=== PATIENT | female | born 1960 | race African-American/Black ===

== ENCOUNTER 2016-06-06 22:34 | Emergency (ER) | payer BC ==
[~2016-06-06 22:34] MED LIST: AMLO5TAB2 PO; HYDR30CR61 TP; LISI1TAB5 PO; METF500T4 PO; NAPR500T PO; PANT40TA3 PO; POLY17PO5 PO; PRED20TA PO; TOPI50TA4 PO; TRAM50TA PO; VENTOLIN HFA18 GM INH; ZAFI20TA12 PO
[2016-06-07] MEDS ORDERED: HYDROMORPHONE 2 MG/ML VIAL. IM ONE (00:30)
[2016-06-07] MEDS ORDERED: HYDR-2666 PO (00:50)
--- NOTE | 2016-06-07 00:50 | PHYS DOC ---
Past Medical History Past Medical History: Arthritis, Asthma, Hypertension Additional Past Medical Histor: PRE DIABETIC, DIVERTICULITIS Past Surgical History: Hysterectomy, Other Additional Past Surgical Histo: R. ANKLE Alcohol Use: Occasionally Drug Use: None Adult General Chief Complaint Chief Complaint: LOWER EXT PAIN HPI HPI 55-year-old female presenting to the emergency department today with right leg pain for more than a year. She describes the pain as a throbbing sensation that is moderate nonradiating intermittent and worse with walking. She denies any numbness or tingling in her foot. Her father has a history of a lung clot in the lung. She does not have any history of blood clotting disorder. She has never had a blood clot. She denies any swelling or redness of the leg. Review of systems is negative for chest pain shortness of breath fevers chills. She denies recent immobilization, recent plane ride, hemoptysis, or active malignancy. All other review of systems is negative unless otherwise noted in history of present illness. Review of Systems Review of Systems SEE ABOVE. Current Medications Current Medications Current Medications Medications (Trade) Dose Ordered Sig/Praveen Start Time Stop Time Status Last Admin Dose Admin Hydromorphone HCl (Dilaudid) 0.5 mg 1X ONCE 06/07/16 00:30 06/07/16 00:31 DC 06/07/16 00:49 0.5 MG Allergies Allergies Allergies Coded Allergies Type Severity Reaction Last Updated Verified Latex, Natural Rubber Allergy Mild RASH 01/25/15 Yes Physical Exam Physical Exam Constitutional: Well developed, well nourished, no acute distress, non-toxic appearance. HENT: Normocephalic, atraumatic, bilateral external ears normal, oropharynx moist, no oral exudates, nose normal. [] Eyes: PERRLA, EOMI, conjunctiva normal, no discharge. Neck: Normal range of motion, no tenderness, supple, no stridor. [] Cardiovascular:Heart rate regular rhythm, no murmur Lungs & Thorax: Bilateral breath sounds clear to auscultation Abdomen: Bowel sounds normal, soft, no tenderness, no masses, no pulsatile masses. [] Skin: Warm, dry, no erythema, no rash. Back: No tenderness, no CVA tenderness. [] Extremities: The patient's right lower extremity is warm and well perfused with palpable pulse. Normal motor and sensory function distally. Patient has mild tenderness with passive range of motion of the knee joint. No effusion on clinical exam. No ecchymosis laceration or abrasion to the skin. Not warm to touch. Nontender venous system. Not swollen. No erythema. No clinical evidence of DVT present. Neurologic: Alert and oriented X 3, normal motor function, normal sensory function, no focal deficits noted. [] Psychologic: Affect normal, judgement normal, mood normal. Current Patient Data Vital Signs Vital Signs Date Time Temp Pulse Resp B/P Pulse Ox O2 Delivery O2 Flow Rate FiO2 06/07/16 00:49 20 99 Room Air 06/06/16 22:41 98.1 87 120/88 98.1 Lab Values Laboratory Tests Test 06/07/16 00:25 D-Dimer (Jannette) 0.64ug/mlFEU (0.00-0.50) H EKG EKG [] Radiology/Procedures Radiology/Procedures [] Course & Med Decision Making Course & Med Decision Making Pertinent Labs and Imaging studies reviewed. (See chart for details) [] 55-year-old female presenting with chronic leg pain. Initially I had ordered an x-ray which apparently the patient and normal x-ray about a week ago. She was low risk for blood clotting. Dimer sent. Dimer was elevated. US neg. Not likely to be blood clot. Pain controlled in the emergency department. Patient was subsequent discharged home to follow up with PCP over the next 2-3 days. Dragon Disclaimer Dragon Disclaimer This electronic medical record was generated, in whole or in part, using a voice recognition dictation system. Departure Departure Impression: Primary Impression: Right knee pain Disposition: HOME, SELF-CARE Condition: STABLE Referrals: AMAYA HORTA MD (PCP) Patient Instructions: Knee Pain Additional Instructions: Thank you for allowing us to participate in your care today. Followup with your primary care physician in 3 days if your symptoms do not improve. If you do not have a primary care provider you can ask for a list of our primary care providers. Return to the emergency department you have any new or concerning findings. This should be evaluated by the primary care physician and any necessary consulting services for continued management within a few days after discharge. Return to emergency room if you have any new or concerning symptoms including but not limited to fever, chills, nausea, vomiting, intractable pain, any new rashes, chest pain, shortness of air, uncontrolled bleeding, difficulty breathing, and/or vision loss. You may have been prescribed medication that can change in your level of thinking and ability to operate machinery. These medications include hydrocodone and Ativan. Also, Benadryl has been known to do this as well. Be sure to check with your pharmacist and ask if the medications you've prescribed can affect your level of consciousness. I recommend not operating heavy machinery or driving while on medication such as these. Scripts Hydrocodone Bit/Acetaminophen (Hydrocodone-Apap 5-325 )1 Each Tablet1 Tab PO PRN Q6HRS PRN PAIN #15 TAB Be careful as this medication may cause you to be drowsy or tired. Do not drive on this medication. Prov:HIRA CESPEDES MD 06/07/16 HIRA CESPEDES MD Jun 07, 2016 00:50
--- NOTE | 2016-06-07 02:31 | RAD ---
Examination: Ultrasound right lower extremity venous duplex. History: History of right lower extremity pain. COMPARISON None available. TECHNIQUE Grayscale, color Doppler 2D, spectral waveform analysis of the right lower extremity venous system were performed. Findings: The visualized common femoral vein, superficial femoral vein, popliteal vein demonstrate normal compression augmentation of flow. The visualized calf veins are patent. IMPRESSION No evidence of deep venous thrombosis identified in the right lower extremity venous system. Electronically signed by: Ilya Rooney (Jun 07, 2016 02:29:28)
[2016-06-07 02:45] VITALS: BP 129/73
== END 2016-06-07 03:00 | disposition home or self-care (01) ==
LOC: ER 22:34
DX: M25.561 Pain in right knee (principal); M19.90 Unspecified osteoarthritis, unspecified site; J45.909 Unspecified asthma, uncomplicated; I10 Essential (primary) hypertension; Z90.710 Acquired absence of both cervix and uterus; Z91.040 Latex allergy status
CPT/HCPCS: 36415; 85379; 93971; 96372; 99285; J1170

== ENCOUNTER 2017-06-21 06:25 | Emergency (ER) | payer BC ==
[2017-06-21] MEDS ORDERED: CONTRAST GIVEN MC (07:00)
[2017-06-21] MEDS ORDERED: 0.9 % SODIUM CHLORIDE 10 ML DISP.SYRIN. IV (07:00)
[2017-06-21 07:20] LABS: ADD MAN DIFF? NO
[2017-06-21 07:24] LABS: BASO % 1 % (0-3); EOS # 0.1 x10^3/uL (0.0-0.7); EOS % 2 % (0-3); HEMATOCRIT 37.6 % (36.0-47.0); HEMOGLOBIN 12.1 g/dL (12.0-15.5); LYMPH # 2.6 x10^3/uL (1.0-4.8); LYMPH % 30 % (24-48); MEAN CORPUSCULAR HEMOGLOBIN 27 pg (25-35); MEAN CORPUSCULAR HGB CONC 32 g/dL (31-37); MEAN CORPUSCULAR VOLUME 85 fL (79-100); MONO # 0.6 x10^3/uL (0.0-1.1); MONO % 7 % (0-9); NEUT # 5.3 x10^3uL (1.8-7.7); NEUT % 61 % (31-73); PLATELET COUNT 383 x10^3/uL (140-400); RED BLOOD COUNT 4.45 x10^6/uL (3.50-5.40); RED CELL DISTRIBUTION WIDTH 14.8 % (11.5-14.5); WHITE BLOOD COUNT 8.8 x10^3/uL (4.0-11.0)
[2017-06-21 07:25] LABS: BILIRUBIN,URINE NEGATIVE (NEG); CLARITY,URINE CLEAR; COLOR,URINE YELLOW; GLUCOSE,URINE NEGATIVE (NEG); NITRITE,URINE NEGATIVE (NEG); PROTEIN,URINE NEGATIVE (NEG-TRACE); UROBILINOGEN,URINE 0.2 mg/dL (0.2 mg/dL)
[2017-06-21] MEDS: IV NORMAL SALINE 1000ML BAG 1,000 ML IV (07:29)
[2017-06-21] MEDS: ONDANSETRON PF 4 MG/2 ML VIAL. IV (07:30)
[2017-06-21] MEDS: MORPHINE SULFATE 4 MG/ML DISP.SYRIN. IV/SQ (07:30)
[2017-06-21 07:33] LABS: ANION GAP 11 (6-14); BLOOD UREA NITROGEN 15 mg/dL (7-20); CALCIUM 8.9 mg/dL (8.5-10.1); CARBON DIOXIDE 24 mmol/L (21-32); CHLORIDE 107 mmol/L (98-107); CREATININE 0.9 mg/dL (0.6-1.0); GFR 78.1; GLUCOSE 137 mg/dL (70-99); POTASSIUM 3.9 mmol/L (3.5-5.1); SODIUM 142 mmol/L (136-145)
[2017-06-21 07:38] LABS: BACTERIA,URINE 0 /HPF (0-FEW); RBC,URINE OCC /HPF (0-2); SQUAMOUS EPITHELIAL CELL,UR FEW /LPF; WBC,URINE 0 /HPF (0-4)
[2017-06-21 07:39] LABS: ALBUMIN 3.5 g/dL (3.4-5.0); ALK PHOS 83 U/L (46-116); ALT (SGPT) 17 U/L (14-59); AST (SGOT) 11 U/L (15-37); DIRECT BILIRUBIN < 0.1 mg/dL (0.0-0.2); LIPASE 102 U/L (73-393); TOTAL BILIRUBIN 0.3 mg/dL (0.2-1.0); TOTAL PROTEIN 7.1 g/dL (6.4-8.2)
[2017-06-21 07:45] LABS: TROPONINI < 0.017 ng/mL (0.000-0.055)
[2017-06-21 07:46] LABS: CKMB MASS < 0.5 ng/mL (0.0-3.6); CREATINE KINASE 76 U/L (26-192)
[2017-06-21] MEDS: IOHEXOL 300 MG/ML 100ML VIAL. IV (08:20)
== END 2017-06-21 09:50 | disposition home or self-care (01) ==
LOC: ER 06:25
DX: K63.89 Other specified diseases of intestine (principal); J45.909 Unspecified asthma, uncomplicated; E11.9 Type 2 diabetes mellitus without complications; I10 Essential (primary) hypertension; F17.210 Nicotine dependence, cigarettes, uncomplicated; Z90.710 Acquired absence of both cervix and uterus; Z91.040 Latex allergy status
CPT/HCPCS: 36415; 74177; 80048; 80076; 81001; 82553; 83690; 84484; 85025; 93005; 96361; 96374; 96375; 99285-25; J2270; J2405; J7030; Q9967